=== PATIENT | female | born 1970 | race Caucasian/White ===

== ENCOUNTER 2017-02-09 11:51 | Emergency (ER) | payer MEDICARE, MEDICAID, SELFPAY ==
[~2017-02-09 11:51] MED LIST: AMLO-511 PO; DIVA500T69 PO; PALI234D IM
== END 2017-02-09 14:14 | disposition left against medical advice (07) ==
LOC: EMS 11:53
DX: S91.119A Laceration without foreign body of unspecified toe without damage to nail, initial encounter (principal); Z53.21 Procedure and treatment not carried out due to patient leaving prior to being seen by health care provider; X58.XXXA Exposure to other specified factors, initial encounter; Y93.89 Activity, other specified; Y92.89 Other specified places as the place of occurrence of the external cause; Y99.8 Other external cause status

== ENCOUNTER → 2017-02-14 | Outpatient (CLI) | payer MEDICARE, OTHER | END | disposition home or self-care (01) | LOC: RADPV 14:36 | PROVIDERS: ATTEND Podiatrist Foot & Ankle Surgery | DX: S99.921A Unspecified injury of right foot, initial encounter (principal); X58.XXXA Exposure to other specified factors, initial encounter; Y93.9 Activity, unspecified; Y99.9 Unspecified external cause status; Y92.9 Unspecified place or not applicable ==

== ENCOUNTER 2019-11-29 14:57 | Emergency (ER) | payer OTHER ==
[~2019-11-29] VITALS: Ht 165.1 cm; Wt 70.5 kg
[~2019-11-29 14:57] MED LIST changes: -AMLO-511 PO; +AMLO5TAB9 PO
[2019-11-29] MEDS ORDERED: NAPROXEN 250 MG TABLET PO ONE (16:15)
[2019-11-29 17:30] VITALS: BP 127/78
== END 2019-11-29 17:47 | disposition home or self-care (01) ==
LOC: EMS 14:59
DX: S63.591A Other specified sprain of right wrist, initial encounter (principal); F41.9 Anxiety disorder, unspecified; I10 Essential (primary) hypertension; F20.9 Schizophrenia, unspecified; F17.210 Nicotine dependence, cigarettes, uncomplicated; F32.9 Major depressive disorder, single episode, unspecified; F12.90 Cannabis use, unspecified, uncomplicated; F11.10 Opioid abuse, uncomplicated; Z79.899 Other long term (current) drug therapy; Z90.710 Acquired absence of both cervix and uterus; X50.9XXA Other and unspecified overexertion or strenuous movements or postures, initial encounter; Y93.89 Activity, other specified; Y92.89 Other specified places as the place of occurrence of the external cause; Y99.8 Other external cause status
CPT/HCPCS: 99406